=== PATIENT | female | born 1950 | race Caucasian/White ===

== ENCOUNTER 2017-04-24 14:22 | Emergency (ER) | payer MEDICARE, MEDICAID ==
[~2017-04-24] VITALS: Ht 157.5 cm; Wt 127.0 kg
[~2017-04-24 14:22] MED LIST: ALBU8.5H2 INHALATION; ASPI-973 PO; ATRV10T PO; FLUT10.62 IH; LORA10CA PO; LOSA50TA37 PO; PANT40TA2 PO; PRE20 PO
[2017-04-24 14:25] VITALS: BP 185/98; PULSE 63; RESP 18; O2SAT 99
--- NOTE | 2017-04-24 17:19 | ED.REPORT ---
HPI-Back Pain 40 and Over Date of Service Apr 24, 2017 ED Provider: Gio Rico PA-C Idania is a 66-year-old female with a history of asthma, hypertension presents today with a chief complaint of back pain. Patient reports pain began in her left upper back relatively abruptly as she was preparing breakfast this morning. Dates that the pain radiated towards her hip, was aggravated by taking deep breaths. Reports starting a new job that required a fair amount of light lifting. Denies injuries. Denies chest pain, palpitations, cough, wheeze , shortness of breath, abdominal pain or urinary symptoms Nursing Notes Stated Complaint: BACK AND CHEST PAIN Chief Complaint: Back Pain or Injury Nursing Notes Reviewed: Yes Allergies: Coded Allergies: Penicillins (Verified Allergy, Unknown, RASH, 04/24/17) codeine (Verified Allergy, Unknown, RASH, 04/24/17) Scheduled Albuterol HFA (Proair HFA) 8.5 Gm Hfa.aer.ad 2 PUFFS INHALATION Q4H Aspirin (Aspirin) 81 Mg Tablet 81 MG PO DAILY Atorvastatin (Lipitor) 10 Mg Tab 10 MG PO DAILY Fluticasone Propionate (Flovent HFA 44 mcg) 10.6 Gm Aer.w.adap 1 PUFF IH BID Loratadine (Claritin) 10 Mg Capsule 10 MG PO DAILY Losartan Potassium (Losartan Potassium) 50 Mg Tablet 50 MG PO DAILY Pantoprazole DR (Protonix) 40 Mg Tablet 40 MG PO DAILY Prednisone (PredniSONE) 20 Mg Tablet 40 MG PO DAILY General Time Seen by MD: 16:53 Chief Complaint Back pain Sudden in Onset?: Yes Past Medical History Past Medical History TIA Hypertension Hyperlipidemia Asthma Seasonal Allergies COPD Past Surgical History None Family History noncontributory Smoking History Former Smoker Social History Alcohol Use: Denies alcohol use Drug Use: Denies drug use Other Social History: Good social support, , Local resident Ambulatory Status Independent Review of Systems Negative unless stated otherwise in history of present illness Physical Exam General: Well appearing, well developed, well nourished, no acute distress. Back: Normal to inspection, moderate tenderness at the inferior angle of the left scapula, paraspinal. Patient states this reproduces her pain. Negative CVA tenderness. Head: Atraumatic, normocephalic. Eyes: No scleral icterus or injection. No discharge. Vision grossly intact. ENT: Voice clear, hearing grossly intact. Respiratory: Regular rate and rhythm. Breath sounds present, clear to auscultation and equal bilaterally. No respiratory distress. No increased work of breathing, speaks rapidly in complete sentences. Cardiovascular: Regular rate and rhythm, without murmur, gallop or rub. No pedal edema. Skin: Warm and dry. Neurological: Grossly nonfocal. Psychological: Alert and oriented. Speech appropriate, linear and logical. Behavior appropriate. Initial Vital Signs Vital Signs (First) Date Time Temp Pulse Resp B/P Pulse Ox O2 Delivery O2 Flow Rate FiO2 04/24/17 14:25 36.4 63 18 185/98 99 Room Air Initial VS: Vital signs abnormal (elevated blood pressure) Re-Eval/Medical Decision Med Decision/Clinical Course 66-year-old female with a history of asthma, hypertension presents with chief complaint of left back pain that began relatively suddenly while she is preparing breakfast this morning. Reports it originates at the inferior angle of her scapula radiates towards her waist. Denies chest pain, palpitations, shortness of breath, cough, wheeze, urinary symptoms, history of cardiac disease. Examination reveals tenderness in this region which reproduces her pain. Vitals reveal moderate elevated blood pressure, otherwise normal. Afebrile. Otherwise benign. I am reassured this is unlikely to be kidney stone , pyelonephritis, coronary or pulmonary disease. I believe this is musculoskeletal pain. Provided ketorolac, acetaminophen. Provided work note. Advised regarding [id number]-[id number] analgesia. Advised regarding primary care follow-up, provided emergency return precautions. Patient verbalized understanding of, and consent to, the plan. Discharge & Departure Impression: Primary Impression: Musculoskeletal back pain Additional Impression: Elevated blood pressure reading Disposition: Home Discharge Condition All VS Reviewed: Yes Condition: Stable Additional Instructions: Evaluation for back pain in the emergency department consists of history and physical examination, both of which are reassuring that this is unlikely to be caused by an immediately dangerous condition. I believe you are stable and safe to be discharged home. I think this is pain in the muscle of the left side of your back. The pain is best treated with 500 mg of naproxen (Aleve) every 12 hours, or 1000 mg of acetaminophen (Tylenol) every 6 hours. These drugs can be taken at the same time for more severe pain. [place] with gentle massage, heat and ice on the affected area to find what is most helpful. Follow-up with your primary care provider if this is not significantly improved in about one week. Return to the emergency department for any new or worsening symptoms including increasing pain, fever, pain in your chest, shortness of breath. Referrals: HERBERT BARON (PCP) EDSupervising Provider for APC: Ang Eaton DO copies to: HERBERT BARON Seth PA-C Apr 24, 2017 17:19
[2017-04-24 18:07] VITALS: BP 213/95; PULSE 58; RESP 16; O2SAT 100
== END 2017-04-24 18:08 | disposition home or self-care (01) ==
LOC: SED 14:22
DX: M54.9 Dorsalgia, unspecified (principal); I10 Essential (primary) hypertension; E78.5 Hyperlipidemia, unspecified; Z86.73 Personal history of transient ischemic attack (TIA), and cerebral infarction without residual deficits; Z79.891 Long term (current) use of opiate analgesic; Z79.82 Long term (current) use of aspirin; Z79.899 Other long term (current) drug therapy; J45.909 Unspecified asthma, uncomplicated; Z88.0 Allergy status to penicillin; Z88.5 Allergy status to narcotic agent
CPT/HCPCS: 96372; 99283; J1885